=== PATIENT | male | born 1970 | race Caucasian/White ===

== ENCOUNTER → 2023-11-11 | Day surgery (SDC) | payer BC ==
[~2023-11-11] MED LIST: ACETAMINOPHEN 1000 MG/100 ML 100 ML IV ONE; ASPIRIN81 MG PO; ATORVASTATIN CA20 MG PO; DAPTOMYCIN500 MG; EPHEDRINE SULFATE INJ 50 MG/ML VIAL ONE; FAMOTIDINE 20 MG/2 ML VIAL IV ONE; GLYCOPYRROLATE INJ 0.2 MG/ML VIAL ONE; IOPAMIDOL 610MG/1ML 300 MG/ML VIAL IV ONE; LIDOCAINE HCL 2% LOCAL INJ 5 ML SDV VIAL INJ ONE; LISINOPRIL5 MG PO; NEURONTIN300 MG PO; OMEPRAZOLE40 MG PO; ONDANSETRON HCL INJ 2MG/ML 2ML 2 MG/ML VIAL ONE; PROPOFOL IV EMULSION 10 MG/ML 20 ML VIAL ONE; ROCEPHIN; SEVOFLURANE INHAL SOLN 250 ML PEN BTL ONE; VITAMIN D32400 UNIT/; ZYRTEC10 M3 PO
[2023-11-11] MEDS: LACTATED RINGER'S 1,000 ML ONE (08:07)
[2023-11-11 12:16] VITALS: TEMP 97.1
[2023-11-11] MEDS: FENTANYL CITRATE/PF 100MCG/2 ML INJ ONE (12:28)
[2023-11-11] MEDS: HYDROMORPHONE 1MG/1ML INJ ONE (12:57)
[2023-11-11] MEDS: ONDANSETRON HCL INJ 2MG/ML 2ML 2 MG/ML VIAL ONE (13:00)
[2023-11-11] MEDS: ACETAMINOPHEN/CODEINE 300MG - 30MG TAB ONE (13:19)
[2023-11-11 13:50] VITALS: BP 133/75; PULSE 76; RESP 17; O2SAT 100
== END | disposition home or self-care (01) ==
LOC: OR 07:35
PROVIDERS: ATTEND Urology
DX: N35.819 Other urethral stricture, male, unspecified site (principal); N36.8 Other specified disorders of urethra; Z98.0 Intestinal bypass and anastomosis status; N40.1 Benign prostatic hyperplasia with lower urinary tract symptoms; N13.8 Other obstructive and reflux uropathy; R39.14 Feeling of incomplete bladder emptying; N39.0 Urinary tract infection, site not specified; N32.89 Other specified disorders of bladder; E29.1 Testicular hypofunction; N52.9 Male erectile dysfunction, unspecified; I10 Essential (primary) hypertension; K21.9 Gastro-esophageal reflux disease without esophagitis; E11.9 Type 2 diabetes mellitus without complications; E66.01 Morbid (severe) obesity due to excess calories; Z79.82 Long term (current) use of aspirin; Z79.899 Other long term (current) drug therapy; Z68.30 Body mass index [BMI] 30.0-30.9, adult
CPT/HCPCS: 52281; 74420; 87086; C1758; C1769; J0131; J1170; J2001; J2405; J2704; J3010; J7121; Q9967

== ENCOUNTER 2023-12-23 06:07 | Inpatient (IN) | payer BC ==
[~2023-12-23] VITALS: Ht 172.7 cm; Wt 90.7 kg
[~2023-12-23 06:07] MED LIST changes: -ACETAMINOPHEN 1000 MG/100 ML 100 ML IV ONE; -EPHEDRINE SULFATE INJ 50 MG/ML VIAL ONE; -FAMOTIDINE 20 MG/2 ML VIAL IV ONE; -GLYCOPYRROLATE INJ 0.2 MG/ML VIAL ONE; -IOPAMIDOL 610MG/1ML 300 MG/ML VIAL IV ONE; -LIDOCAINE HCL 2% LOCAL INJ 5 ML SDV VIAL INJ ONE; -ONDANSETRON HCL INJ 2MG/ML 2ML 2 MG/ML VIAL ONE; -PROPOFOL IV EMULSION 10 MG/ML 20 ML VIAL ONE; -SEVOFLURANE INHAL SOLN 250 ML PEN BTL ONE; -VITAMIN D32400 UNIT/; +VITAMIN D32400 UNIT/ PO
[2023-12-23 06:52] LABS: BASOPHILS % 0.4 % (0.0-1.0); EOSINOPHILS # (AUTO) 0.2 (0.0-0.4); EOSINOPHILS % 3.2 % (0.0-6.0); HEMATOCRIT 49.3 % (38.2-49.6); LYMPHOCYTES # (AUTO) 2.3 (1.0-3.2); LYMPHOCYTES % 30.2 % (18.0-39.1); MEAN CORPUSCULAR HEMOGLOBIN 30.6 pg (28-32); MEAN CORPUSCULAR HGB CONC 34.5 g/dL (31-35); MEAN CORPUSCULAR VOLUME 88.8 fL (81-99); MONOCYTES # (AUTO) 0.6 (0.2-0.8); MONOCYTES % 8.3 % (4.4-11.3); NEUTROPHILS # (AUTO) 4.3 (2.1-6.9); NEUTROPHILS % 57.1 % (38.7-80.0); PLATELET COUNT 177 x10e3/uL (140-360); RED BLOOD COUNT 5.55 x10e6/uL (4.3-5.7); RED CELL DISTRIBUTION WIDTH 13.2 % (11.7-14.4); WHITE BLOOD COUNT 7.49 x10e3/uL (4.8-10.8)
[2023-12-23 06:53] LABS: BILIRUBIN,URINE NEGATIVE (NEGATIVE); CLARITY,URINE SL CLOUDY (CLEAR); COLOR,URINE YELLOW (YELLOW); GLUCOSE, URINE NEGATIVE (NEGATIVE); KETONES,URINE NEGATIVE (NEGATIVE); LEUKOCYTE ESTERASE ,URINE TRACE (NEGATIVE); NITRITE,URINE NEGATIVE (NEGATIVE); PH,URINE 6 (5 - 7); PROTEIN,URINE DIPSTICK NEGATIVE (NEGATIVE); URINE UROBILINOGEN 0.2 mg/dL (0.2 - 1)
[2023-12-23] MEDS ORDERED: CEFEPIME HCL 1 GM VIAL ONE (06:54)
[2023-12-23 07:04] LABS: BACTERIA,URINE FEW /HPF; EPITHELIAL CELLS,URINE FEW /LPF; RBC,URINE 0-5 /HPF (0-5); WBC,URINE (MAN) >50 /HPF (0-5)
[2023-12-23 07:08] LABS: ANION GAP 15.5 mmol/L (8-16); CALCIUM 9.4 mg/dL (8.4-10.2); CREATININE, SERUM 1.42 mg/dL (0.72-1.25); POTASSIUM 4.5 mmol/L (3.5-5.1)
[2023-12-23] MEDS ORDERED: SODIUM CHLORIDE 0.9% 1000ML 1,000 ML ONE ×2 (07:32→16:07)
[2023-12-23] MEDS: SODIUM CHLORIDE 0.9% 1000ML 1,000 ML IV SCH (07:34)
[2023-12-23 09:35] VITALS: PULSE 76; RESP 18; O2SAT 96
[2023-12-23 10:53] VITALS: BP 126/83; PULSE 76; RESP 18; O2SAT 96
[2023-12-23 10:55] VITALS: BP 126/83; PULSE 76; RESP 18; O2SAT 96
[2023-12-23 11:37] VITALS: BP 129/84; PULSE 78; RESP 17; TEMP 97.8; O2SAT 100
[2023-12-23] MEDS ORDERED: FENTANYL CITRATE/PF 100MCG/2 ML INJ ONE ×2 (13:40→15:48)
[2023-12-23] MEDS ORDERED: IOPAMIDOL 300MG/ML 100 ML INFUS..BTL IV ONE (13:57)
[2023-12-23] MEDS ORDERED: ONDANSETRON HCL INJ 2MG/ML 2ML 2 MG/ML VIAL ONE ×2 (15:21→16:44)
[2023-12-23] MEDS: ONDANSETRON HCL INJ 2MG/ML 2ML 2 MG/ML VIAL IV PRN (15:21)
[2023-12-23] MEDS: HYDROMORPHONE 1MG/1ML INJ IV ONE ×2 (15:22→15:30)
[2023-12-23] MEDS ORDERED: HYDROMORPHONE 1MG/1ML INJ ONE (15:22)
[2023-12-23] MEDS ORDERED: PHENAZOPYRIDINE HCL 100 MG TAB PO PRN (15:45)
[2023-12-23] MEDS: FENTANYL CITRATE/PF 100MCG/2 ML INJ IV ONE (15:48)
[2023-12-23] MEDS ORDERED: PHENAZOPYRIDINE HCL 100 MG TAB ONE (16:12)
[2023-12-23 16:32] VITALS: BP 149/82; PULSE 80; RESP 15; TEMP 97.4; O2SAT 96
[2023-12-23] MEDS ORDERED: DEXAMETHASONE SOD PHOS INJ 4 MG/ML SDV ONE (16:44)
[2023-12-23] MEDS ORDERED: LIDOCAINE HCL 2% LOCAL INJ 5 ML SDV VIAL INJ ONE (16:44)
[2023-12-23] MEDS ORDERED: SEVOFLURANE INHAL SOLN 250 ML PEN BTL ONE (16:44)
[2023-12-23] MEDS ORDERED: PROPOFOL IV EMULSION 10 MG/ML 20 ML VIAL ONE (16:44)
[2023-12-23] MEDS: PHENAZOPYRIDINE HCL 100 MG TAB PO ONE (17:02)
[2023-12-23] MEDS: ACETAMINOPHEN/CODEINE 300MG - 30MG TAB PO PRN (17:14)
[2023-12-23] MEDS ORDERED: ACETAMINOPHEN/CODEINE 300MG - 30MG TAB ONE (17:15)
[2023-12-23 20:00] VITALS: BP 139/91; PULSE 103; RESP 18; TEMP 97.9; O2SAT 97
[2023-12-23] MEDS: Morphine 4mg INJECTION 4 MG/ML INJ IV PRN (20:29)
[2023-12-23] MEDS ORDERED: ACETAMINOPHEN 1000 MG/100 ML IV PRN (21:45)
[2023-12-23] MEDS: GABAPENTIN 300 MG CAP PO SCH (22:37)
[2023-12-23] MEDS: ATORVASTATIN 20 MG TAB PO SCH (22:37)
[2023-12-23] MEDS: LISINOPRIL 2.5 MG TAB PO SCH (22:37)
[2023-12-23] MEDS: LORATADINE 10 MG TAB PO SCH (22:40)
[2023-12-23] MEDS: PANTOPRAZOLE SOD 40 MG TABEC PO SCH (22:40)
[2023-12-23] MEDS: HYDROMORPHONE 1MG/1ML INJ IV PRN (23:25)
[2023-12-24] VITALS: BP 135/89; PULSE 72; RESP 18; TEMP 97.7; O2SAT 98
[2023-12-24] MEDS ORDERED: HYDROMORPHONE 1MG/1ML INJ ONE (02:52)
[2023-12-24 04:00] VITALS: BP 115/68; PULSE 90; RESP 18; TEMP 97.9; O2SAT 99
[2023-12-24 06:07] LABS: BASOPHILS % 0.1 % (0.0-1.0); HEMATOCRIT 45.9 % (38.2-49.6); HEMOGLOBIN 15.9 g/dL (14.0-18.0); LYMPHOCYTES # (AUTO) 0.6 (1.0-3.2); LYMPHOCYTES % 3.8 % (18.0-39.1); MEAN CORPUSCULAR HEMOGLOBIN 30.5 pg (28-32); MEAN CORPUSCULAR HGB CONC 34.6 g/dL (31-35); MEAN CORPUSCULAR VOLUME 87.9 fL (81-99); MONOCYTES # (AUTO) 0.6 (0.2-0.8); MONOCYTES % 3.9 % (4.4-11.3); NEUTROPHILS % 91.7 % (38.7-80.0); PLATELET COUNT 199 x10e3/uL (140-360); RED BLOOD COUNT 5.22 x10e6/uL (4.3-5.7); RED CELL DISTRIBUTION WIDTH 13.1 % (11.7-14.4); WHITE BLOOD COUNT 16.33 x10e3/uL (4.8-10.8)
[2023-12-24] MEDS ORDERED: SODIUM CHLORIDE 0.9% 1000ML 1,000 ML ONE (06:09)
[2023-12-24 06:23] LABS: ANION GAP 14.6 mmol/L (8-16); CREATININE, SERUM 1.16 mg/dL (0.72-1.25); POTASSIUM 4.6 mmol/L (3.5-5.1)
[2023-12-24 07:00] VITALS: BP 105/72; PULSE 85; RESP 18; TEMP 98.4; O2SAT 100
[2023-12-24] MEDS ORDERED: LISINOPRIL 2.5 MG TAB ONE ×2 (07:40→08:43)
[2023-12-24] MEDS ORDERED: CEFEPIME HCL 1 GM VIAL ONE (07:40)
[2023-12-24] MEDS ORDERED: CHOLECALCIFEROL 1,000 UNIT TAB ONE (07:40)
[2023-12-24] MEDS: CHOLECALCIFEROL 1,000 UNIT TAB PO SCH ×2 (08:50→21:20)
[2023-12-24 08:58] VITALS: BP 105/72; PULSE 85; RESP 18; TEMP 98.4; O2SAT 100
[2023-12-24] MEDS ORDERED: ONDANSETRON HCL INJ 2MG/ML 2ML 2 MG/ML VIAL ONE (09:26)
[2023-12-24 16:34] VITALS: BP 117/73; PULSE 91; RESP 20; TEMP 98.4; O2SAT 100
[2023-12-24] MEDS ORDERED: FLUCONAZOLE 200 MG/100 ML 100 ML IV SCH (17:45)
[2023-12-24 20:00] VITALS: BP 117/74; PULSE 77; RESP 18; TEMP 97; O2SAT 97
[2023-12-24] MEDS: FLUCONAZOLE 200 MG/100 ML 100 ML IV SCH (21:22)
[2023-12-25 06:14] LABS: BASOPHILS % 0.3 % (0.0-1.0); EOSINOPHILS # (AUTO) 0.1 (0.0-0.4); EOSINOPHILS % 1.3 % (0.0-6.0); HEMATOCRIT 44.7 % (38.2-49.6); HEMOGLOBIN 14.6 g/dL (14.0-18.0); LYMPHOCYTES # (AUTO) 2.2 (1.0-3.2); LYMPHOCYTES % 21.6 % (18.0-39.1); MEAN CORPUSCULAR HEMOGLOBIN 29.8 pg (28-32); MEAN CORPUSCULAR HGB CONC 32.7 g/dL (31-35); MEAN CORPUSCULAR VOLUME 91.2 fL (81-99); MONOCYTES # (AUTO) 0.9 (0.2-0.8); MONOCYTES % 8.4 % (4.4-11.3); NEUTROPHILS % 67.6 % (38.7-80.0); PLATELET COUNT 169 x10e3/uL (140-360); RED CELL DISTRIBUTION WIDTH 13.5 % (11.7-14.4); WHITE BLOOD COUNT 10.32 x10e3/uL (4.8-10.8)
[2023-12-25 06:18] LABS: ANION GAP 13.1 mmol/L (8-16); CALCIUM 8.7 mg/dL (8.4-10.2); CREATININE, SERUM 1.07 mg/dL (0.72-1.25); POTASSIUM 4.1 mmol/L (3.5-5.1)
[2023-12-25 07:13] VITALS: BP 113/70; PULSE 77; RESP 18; TEMP 97; O2SAT 97
[2023-12-25 07:30] VITALS: BP 120/77; PULSE 80; RESP 20; TEMP 97.6; O2SAT 98
[2023-12-25] MEDS ORDERED: CEFEPIME HCL 1 GM VIAL ONE (08:35)
[2023-12-25] MEDS ORDERED: LISINOPRIL 2.5 MG TAB ONE (08:35)
[2023-12-25 09:52] VITALS: BP 120/77; PULSE 80; RESP 20; TEMP 97.6; O2SAT 98
[2023-12-25 12:14] VITALS: BP 122/85; PULSE 85; RESP 20; TEMP 97.8; O2SAT 100
== END 2023-12-25 15:01 | disposition home or self-care (01) | DRG 697 ==
LOC: ER 06:15 → ERHOLD 06:50 → MED/SURG 09:53
PROVIDERS: ADMIT Internal Medicine; ATTEND Internal Medicine
PROC: BT1B1ZZ Fluoroscopy of Bladder and Urethra using Low Osmolar Contrast (ICD-10-PCS; 2023-12-23)
PROC: 0T7D8ZZ Dilation of Urethra, Via Natural or Artificial Opening Endoscopic (ICD-10-PCS; principal; 2023-12-23 13:58)
DX: N35.919 Unspecified urethral stricture, male, unspecified site (principal); N39.0 Urinary tract infection, site not specified; N17.9 Acute kidney failure, unspecified; N13.9 Obstructive and reflux uropathy, unspecified; R33.9 Retention of urine, unspecified; I10 Essential (primary) hypertension; E78.5 Hyperlipidemia, unspecified; Z11.52 Encounter for screening for COVID-19; N41.9 Inflammatory disease of prostate, unspecified; K21.9 Gastro-esophageal reflux disease without esophagitis; R73.9 Hyperglycemia, unspecified; R31.9 Hematuria, unspecified; E66.9 Obesity, unspecified; Z68.30 Body mass index [BMI] 30.0-30.9, adult; Z79.82 Long term (current) use of aspirin; Z88.1 Allergy status to other antibiotic agents; Z88.8 Allergy status to other drugs, medicaments and biological substances; Z82.49 Family history of ischemic heart disease and other diseases of the circulatory system
CPT/HCPCS: 36415; 74420; 80048; 81001; 85025; 87086; 94799; 99284; C1726; C1766; C1769; J0692; J1100; J1170; J2001; J2405; J7030; Q9967; U0002

== ENCOUNTER → 2024-03-23 | Day surgery (SDC) | payer BC ==
[~2024-03-23] MED LIST changes: +ACETAMINOPHEN 1000 MG/100 ML IV ONE; +DEXAMETHASONE SOD PHOS INJ 4 MG/ML SDV ONE; +DEXMEDETOMIDINE HCL 200 MCG/2 ML VIAL ONE; +FAMOTIDINE 20 MG/2 ML VIAL IV ONE; +FENTANYL CITRATE/PF 100MCG/2 ML INJ ONE; +IOPAMIDOL 610MG/1ML 300 MG/ML VIAL IV ONE; +LIDOCAINE HCL 2% LOCAL INJ 5 ML SDV VIAL INJ ONE; +ONDANSETRON HCL INJ 2MG/ML 2ML 2 MG/ML VIAL ONE; +PROPOFOL IV EMULSION 10 MG/ML 20 ML VIAL ONE; +SEVOFLURANE INHAL SOLN 250 ML PEN BTL ONE
[2024-03-23 07:05] LABS: BASOPHILS # (AUTO) 0.1 (0.0-0.1); BASOPHILS % 0.6 % (0.0-1.0); EOSINOPHILS # (AUTO) 0.2 (0.0-0.4); EOSINOPHILS % 2.2 % (0.0-6.0); HEMOGLOBIN 18.2 g/dL (14.0-18.0); LYMPHOCYTES # (AUTO) 2.2 (1.0-3.2); LYMPHOCYTES % 25.9 % (18.0-39.1); MEAN CORPUSCULAR HEMOGLOBIN 29.9 pg (28-32); MEAN CORPUSCULAR HGB CONC 33.1 g/dL (31-35); MEAN CORPUSCULAR VOLUME 90.5 fL (81-99); MONOCYTES # (AUTO) 0.8 (0.2-0.8); MONOCYTES % 9.2 % (4.4-11.3); NEUTROPHILS # (AUTO) 5.3 (2.1-6.9); NEUTROPHILS % 61.2 % (38.7-80.0); PLATELET COUNT 195 x10e3/uL (140-360); RED BLOOD COUNT 6.08 x10e6/uL (4.3-5.7); RED CELL DISTRIBUTION WIDTH 13.6 % (11.7-14.4)
[2024-03-23 07:18] LABS: ANION GAP 20.8 mmol/L (8-16); CALCIUM 9.5 mg/dL (8.4-10.2); CREATININE, SERUM 1.26 mg/dL (0.72-1.25); POTASSIUM 4.8 mmol/L (3.5-5.1)
[2024-03-23] MEDS: LACTATED RINGER'S 1,000 ML ONE (07:42)
[2024-03-23] MEDS: CEFTRIAXONE 1 GM VIAL ONE (07:42)
[2024-03-23] MEDS: GENTAMICIN 80MG/NS 100 ML 100 ML IV ONE (07:43)
[2024-03-23] MEDS: ONDANSETRON HCL INJ 2MG/ML 2ML 2 MG/ML VIAL ONE (11:05)
[2024-03-23] MEDS: ACETAMINOPHEN/CODEINE 300MG - 30MG TAB ONE (11:25)
[2024-03-23 11:30] VITALS: BP 136/81; PULSE 85; RESP 18; TEMP 97.8; O2SAT 98
== END | disposition home or self-care (01) ==
LOC: OR 05:54
PROVIDERS: ATTEND Urology
DX: N35.819 Other urethral stricture, male, unspecified site (principal); N32.89 Other specified disorders of bladder; I10 Essential (primary) hypertension; E78.5 Hyperlipidemia, unspecified; K21.9 Gastro-esophageal reflux disease without esophagitis; G89.29 Other chronic pain; Z79.899 Other long term (current) drug therapy
CPT/HCPCS: 36415; 52281; 74420; 80048; 85025; 87086; 93005; C1758 ×2; C1766; C1769; J0131; J0696; J1100; J1580; J2001; J2405; J2704; J3010; J7121; Q9967

== ENCOUNTER → 2025-05-03 | Day surgery (SDC) | payer BC ==
[~2025-05-03] MED LIST changes: +ACETAMINOPHEN 1000 MG/100 ML 100 ML IV ONE; -ACETAMINOPHEN 1000 MG/100 ML IV ONE; -DEXMEDETOMIDINE HCL 200 MCG/2 ML VIAL ONE; -FAMOTIDINE 20 MG/2 ML VIAL IV ONE; -IOPAMIDOL 610MG/1ML 300 MG/ML VIAL IV ONE; +PIPERACILLIN/TAZOBACTAM 3.375 GM VIAL ONE; -SEVOFLURANE INHAL SOLN 250 ML PEN BTL ONE; +SUCCINYLCHOLINE CHLORIDE 20 MG/ML 10ML VIAL ONE
[2025-05-03] MEDS: SODIUM CHLORIDE 0.9% 1000ML 1,000 ML ONE (07:44)
[2025-05-03] MEDS: GENTAMICIN 80MG/NS 100 ML 200 ML IV ONE (07:52)
[2025-05-03 07:57] LABS: BASOPHILS % 0.5 % (0.0-1.0); EOSINOPHILS % 2.3 % (0.0-6.0); LYMPHOCYTES % 23.4 % (18.0-39.1); MONOCYTES % 7.4 % (4.4-11.3); NEUTROPHILS % 65.3 % (38.7-80.0); RED CELL DISTRIBUTION WIDTH 13.2 % (11.7-14.4)
[2025-05-03 08:12] LABS: EST GLOMERULAR FILTRATION RATE 80.0 ML/MIN (>=60)
[2025-05-03 11:21] VITALS: TEMP 97.3
[2025-05-03] MEDS: ONDANSETRON HCL INJ 2MG/ML 2ML 2 MG/ML VIAL ONE (11:49)
[2025-05-03] MEDS: ACETAMINOPHEN/CODEINE 300MG - 30MG TAB ONE (12:04)
[2025-05-03 12:45] VITALS: BP 142/90; PULSE 76; RESP 16; O2SAT 99
== END | disposition home or self-care (01) ==
LOC: OR 07:14
PROVIDERS: ATTEND Urology
DX: N35.912 Unspecified bulbous urethral stricture, male (principal); R33.9 Retention of urine, unspecified; R39.14 Feeling of incomplete bladder emptying; R31.29 Other microscopic hematuria; E29.1 Testicular hypofunction; I10 Essential (primary) hypertension; R73.03 Prediabetes; G89.29 Other chronic pain; K21.9 Gastro-esophageal reflux disease without esophagitis; Z87.440 Personal history of urinary (tract) infections; G57.20 Lesion of femoral nerve, unspecified lower limb; Z90.79 Acquired absence of other genital organ(s); Z79.899 Other long term (current) drug therapy
CPT/HCPCS: 36415; 52284; 74420; 80048; 85025; 93005; C1726; C1769; J0131; J0330; J1100; J1580; J2003; J2405; J2543; J2704; J3010; J7030